=== PATIENT | male | born 1965 | race Caucasian/White ===

== ENCOUNTER 2017-09-28 10:55 | Emergency (ER) | payer SELFPAY ==
--- NOTE | 2017-09-28 11:12 | ER Document Report ---
ED Medical Screen (RME) - General Chief Complaint: Low Back Pain Stated Complaint: HEADACHE/NAUSEA Time Seen by Provider: 09/28/17 11:07 Mode of Arrival: Ambulatory Information source: Patient Notes: 51-year-old male presents with complaints of bilateral flank pain foul-smelling urine darker appearing urine. Patient notes he had a similar episode a few years ago when he had coffee-like appearance of his urine but that resolved on its own I have greeted and performed a rapid initial assessment of this patient. A comprehensive ED assessment and evaluation of the patient, analysis of test results and completion of the medical decision making process will be conducted by additional ED providers. PHYSICAL EXAMINATION: GENERAL: Well-appearing, well-nourished and in no acute distress. Smells of cigarettes HEAD: Atraumatic, normocephalic. EYES: Pupils equal round extraocular movements intact, conjunctiva are normal. ENT: Nares patent NECK: Normal range of motion LUNGS: No respiratory distress Musculoskeletal: Normal range of motion NEUROLOGICAL: Normal speech, normal gait. PSYCH: Normal mood, normal affect. SKIN: Warm, Dry, normal turgor, no rashes or lesions noted. TRAVEL OUTSIDE OF THE [place] IN LAST 30 DAYS: No - Related Data Allergies/Adverse Reactions: No Known Allergies Allergy (Unverified 11/09/11 13:35) Past Medical History - Social History Chew tobacco use (# tins/day): No Frequency of alcohol use: Occasional Drug Abuse: Marijuana Renal/ Medical History: Denies: Hx Peritoneal Dialysis Past Surgical History: Reports: Hx Cholecystectomy - Immunizations Hx Diphtheria, Pertussis, Tetanus Vaccination: No Physical Exam - Vital signs Vitals: Temp Pulse Resp BP Pulse Ox 97.9 F 56 L 16 132/80 H 97 09/28/17 10:59 09/28/17 10:59 09/28/17 10:59 09/28/17 10:59 09/28/17 10:59 Course - Vital Signs Vital signs: Temp Pulse Resp BP Pulse Ox 97.9 F 56 L 16 132/80 H 97 09/28/17 10:59 09/28/17 10:59 09/28/17 10:59 09/28/17 10:59 09/28/17 10:59
[2017-09-28 11:44] LABS: ABSOLUTE BASOPHILS # (AUTO) 0.1 10^3/uL (0.0-0.2); ABSOLUTE EOSINOPHILS # (AUTO) 0.1 10^3/uL (0.0-0.6); ABSOLUTE LYMPHOCYTES (AUTO) 1.3 10^3/uL (0.5-4.7); ABSOLUTE MONOCYTES (AUTO) 0.3 10^3/uL (0.1-1.4); BASOPHILS % (AUTO) 0.8 % (0-2); EOSINOPHILS % (AUTO) 1.3 % (0-6); HEMATOCRIT 44.6 % (37.9-51.0); HEMOGLOBIN 15.3 g/dL (13.5-17.0); LYMPHOCYTES % (AUTO) 15.1 % (13-45); MEAN CORPUSCULAR HEMOGLOBIN 31.9 pg (27.0-33.4); MEAN CORPUSCULAR HGB CONC 34.3 g/dL (32.0-36.0); MEAN CORPUSCULAR VOLUME 93 fl (80-97); MONOCYTES % (AUTO) 3.7 % (3-13); PLATELET COUNT 278 10^3/uL (150-450); RED CELL DISTRIBUTION WIDTH 13.4 % (11.5-14.0); SEGMENTED NEUTROPHILS % (AUTO) 79.1 % (42-78); TOTAL CELLS COUNTED % (AUTO) 100 %; WHITE BLOOD COUNT 8.8 10^3/uL (4.0-10.5)
[2017-09-28 11:57] LABS: APPEARANCE,URINE CLEAR; BILIRUBIN,URINE NEGATIVE (NEGATIVE); COLOR,URINE YELLOW; GLUCOSE, URINE NEGATIVE (NEGATIVE); KETONES,URINE 20 mg/dL (NEGATIVE); LEUKOCYTE ESTERASE,URINE NEGATIVE (NEGATIVE); NITRITE,URINE NEGATIVE (NEGATIVE); PROTEIN,URINE NEGATIVE (NEGATIVE); URINE SPECIFIC GRAVITY 1.031
[2017-09-28 11:58] LABS: ALANINE AMINOTRANSFERASE 23 U/L (21-72); ALBUMIN 4.9 g/dL (3.5-5.0); ALKALINE PHOSPHATASE 56 U/L (38-126); ANION GAP 14 (5-19); ASPARTATE AMINO TRANSFERASE 39 U/L (17-59); BILIRUBIN,DIRECT 0.3 mg/dL (0.0-0.4); BILIRUBIN,TOTAL 0.9 mg/dL (0.2-1.3); BLOOD UREA NITROGEN 18 mg/dL (7-20); CARBON DIOXIDE 22 mmol/L (22-30); CHLORIDE 108 mmol/L (98-107); CREATINE KINASE 139 U/L (55-170); GLUCOSE 143 mg/dL (75-110); POTASSIUM 4.3 mmol/L (3.6-5.0); TOTAL PROTEIN 8.4 g/dL (6.3-8.2)
--- NOTE | 2017-09-28 12:28 | ER Document Report ---
ED General - General Mode of Arrival: Ambulatory Information source: Patient TRAVEL OUTSIDE OF THE [place] IN LAST 30 DAYS: No <DUANE MEMBRENO - Last Filed: 09/28/17 13:56> <ROLO PARK - Last Filed: 09/29/17 15:21> - General Chief Complaint: Low Back Pain Stated Complaint: HEADACHE/NAUSEA Time Seen by Provider: 09/28/17 11:07 Notes: Patient is a 51-year-old male who presents to the emergency department today with complaints of bilateral lower back pain. Patient states that he "thinks it is his kidneys" but is not really able to say why. 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 Patient denies any incontinence, dysuria, testicular pain, or usage of blood thinners. (DUANE MEMBRENO) - Related Data Allergies/Adverse Reactions: No Known Allergies Allergy (Unverified 11/09/11 13:35) Past Medical History - General Information source: Patient - Social History Smoking Status: Current Every Day Smoker Chew tobacco use (# tins/day): No Frequency of alcohol use: Occasional Drug Abuse: Marijuana Lives with: Family Family History: Reviewed & Not Pertinent Patient has suicidal ideation: No Patient has homicidal ideation: No - Medical History Medical History: Negative Renal/ Medical History: Denies: Hx Peritoneal Dialysis Past Surgical History: Reports: Hx Cholecystectomy - Immunizations Hx Diphtheria, Pertussis, Tetanus Vaccination: No <DUANE MEMBRENO - Last Filed: 09/28/17 13:56> Review of Systems - Review of Systems Constitutional: No symptoms reported EENT: No symptoms reported Cardiovascular: No symptoms reported Respiratory: No symptoms reported Gastrointestinal: No symptoms reported Genitourinary: denies: Dysuria Male Genitourinary: denies: Testicular pain Musculoskeletal: See HPI, Back pain Skin: No symptoms reported Hematologic/Lymphatic: No symptoms reported Neurological/Psychological: No symptoms reported -: Yes All other systems reviewed and negative <DUANE MEMBRENO - Last Filed: 09/28/17 13:56> Physical Exam <DUANE MEMBRENO - Last Filed: 09/28/17 13:56> <ROLO PARK - Last Filed: 09/29/17 15:21> - Vital signs Vitals: Temp Pulse Resp BP Pulse Ox 97.9 F 56 L 16 132/80 H 97 09/28/17 10:59 09/28/17 10:59 09/28/17 10:59 09/28/17 10:59 09/28/17 10:59 - Notes Notes: Physical Exam: General: Alert, appears well. HEENT: Normocephalic. Atraumatic. PERRLA. Extraocular movements intact. Oropharynx clear. Neck: Supple. Respiratory: No respiratory distress. Abdominal: Normal Inspection. No distension. Back: No midline bony tenderness with palpation. Mild bilateral lumbar paraspinal musculature tenderness with palpation. Extremities: Moves all four extremities. Neurological: Normal cognition. AAOx4. Normal speech. Psychological: Normal affect. Normal Mood. Skin: Warm. Dry. Normal color. (DUANE MEMBRENO) Course - Laboratory Result Diagrams: 09/28/17 11:17 09/28/17 11:17 <DUANE MEMBRENO - Last Filed: 09/28/17 13:56> - Laboratory Result Diagrams: 09/28/17 11:17 09/28/17 11:17 <ROLO PARK - Last Filed: 09/29/17 15:21> - Re-evaluation Re-evalutation: 09/28/17 12:52 Patient's labs within normal limits are nonsignificant patient's pain is paraspinal bilateral lower back. Patient moves furniture for a living. His signs and symptoms are advised to stay well-hydrated and restrict lifting to 25 pounds for the next week. (ROLO PARK) - Vital Signs Vital signs: Temp Pulse Resp BP Pulse Ox 98.0 F 56 L 18 138/81 H 97 09/28/17 13:08 09/28/17 11:00 09/28/17 13:08 09/28/17 13:08 09/28/17 11:00 - Laboratory Laboratory results interpreted by wv: 09/28/17 09/28/17 09/28/17 11:17 11:17 11:17 Seg Neutrophils % 79.1 H Chloride 108 H Glucose 143 H Total Protein 8.4 H Urine Ketones 20 H Urine Urobilinogen 2.0 H Discharge <DUANE MEMBRENO - Last Filed: 09/28/17 13:56> <ROLO PARK - Last Filed: 09/29/17 15:21> - Discharge Condition: Good Disposition: HOME, SELF-CARE Instructions: Low Back Pain ([facility]), Muscle Strain ([facility]) Additional Instructions: Please do not lift more than 25 pounds for the next week. Please take medications as prescribed. Please return to the emergency department for any development of fevers numbness tingling or weakness in her bilateral lower extremities. Prescriptions: Naproxen 500 mg PO BID PRN #20 tablet PRN Reason: Forms: Return to Work Referrals: [facility] [NO LOCAL MD] - Follow up as needed Scribe Attestation: 09/29/17 15:21 I personally performed the services described documentation, reviewed and edited the documentation which was dictated to describe my presence, and it accurately records my words and actions. (ROLO PARK) Scribe Documentation - Scribe Written by Scribe:: Samina Genao, 09/28/2017 1401 acting as scribe for :: Den <DUANE MEMBRENO - Last Filed: 09/28/17 13:56>
[2017-09-28 13:10] VITALS: BP 138/81
== END 2017-09-28 13:10 | disposition home or self-care (01) ==
LOC: ER 10:55
DX: S39.012A Strain of muscle, fascia and tendon of lower back, initial encounter (principal); X58.XXXA Exposure to other specified factors, initial encounter; F17.200 Nicotine dependence, unspecified, uncomplicated; F12.10 Cannabis abuse, uncomplicated
CPT/HCPCS: 36415; 80053; 81001; 82550; 85025; 99283